=== PATIENT | male | born 1960 | race Caucasian/White ===

== ENCOUNTER 2022-03-16 18:10 | Emergency (ER) | payer OTHER ==
[~2022-03-16] VITALS: Ht 167.6 cm; Wt 54.5 kg
[~2022-03-16 18:10] MED LIST: INSLAN SQ
[2022-03-16] MEDS ORDERED: FLUD.1 PO (18:35)
[2022-03-16 20:56] VITALS: BP 120/83
[2022-03-16] MEDS ORDERED: BACI28OI29 TP (22:20)
[2022-03-16] MEDS ORDERED: BACITRACIN 0.9 GM PACKET OINTMENT TP ONE (22:30)
== END 2022-03-16 22:36 | disposition home or self-care (01) ==
LOC: EMS 18:13
DX: L08.9 Local infection of the skin and subcutaneous tissue, unspecified (principal); E11.9 Type 2 diabetes mellitus without complications; Z87.898 Personal history of other specified conditions; Z98.890 Other specified postprocedural states
CPT/HCPCS: 99282; Z7502; Z7610